=== PATIENT | female | born 1990 | race Caucasian/White ===

== ENCOUNTER 2017-01-15 04:19 | Emergency (ER) | payer MEDICAID | END 2017-01-15 04:55 | disposition home or self-care (01) | LOC: D.ER 04:19 | DX: R51 Headache (principal); R07.9 Chest pain, unspecified; F17.200 Nicotine dependence, unspecified, uncomplicated ==

== ENCOUNTER 2017-04-11 19:02 | Emergency (ER) | payer BC ==
[2017-04-11 20:33] LABS: BASOPHILS 0.8 % (0-2); EOSINOPHILS 4.3 % (0-7); HEMATOCRIT 41.9 % (36.0-48.0); HEMOGLOBIN 14.4 g/dL (12-16); IMMATURE GRANULOCYTES 0.3 % (0-5); LYMPHOCYTES 33.4 % (15-50); MCH 31.3 pg (26.0-34.0); MCHC 34.4 g/dL (31.0-37.0); MCV 91.1 fL (80.0-100.0); MEAN PLATELET VOLUME 9.5 fL (7.4-10.4); MONOCYTES 5.3 % (2-11); NEUTROPHILS 55.9 % (40-80); PLATELET COUNT 216 10x3/uL (130-400); RDW 12.3 % (11.5-14.5); WBC 11.7 10x3/uL (4.8-10.8)
[2017-04-11 20:46] LABS: ALBUMIN 3.9 g/dL (3.4-5.0); ALKALINE PHOSPHATASE 85 U/L (46-116); ALT (SGPT) 61 U/L (10-68); BILIRUBIN - TOTAL 0.19 mg/dL (0.2-1.3); CALC OSMOLALITY 281 mosm/kg (275-300); CARBON DIOXIDE 22.8 mmol/L (21.0-32.0); CHLORIDE - SERUM 107 mmol/L (98-107); CREATININE - SERUM 0.9 mg/dL (0.6-1.3); GLUCOSE 117 mg/dL (74-106); POTASSIUM - SERUM 3.9 mmol/L (3.5-5.1); SODIUM 140 mmol/L (136-145); UREA NITROGEN 17 mg/dL (7-18); eGFR NON AFRICAN AMERICAN 81 mL/min (90-120)
[2017-04-11 21:03] LABS: PROTEIN - SERUM 8.1 g/dL (6.4-8.2)
== END 2017-04-12 01:30 | disposition home or self-care (01) ==
LOC: D.ER 19:02
PROVIDERS: Emergency Medicine
DX: R51 Headache (principal)

== ENCOUNTER 2018-04-28 21:38 | Emergency (ER) | payer MEDICAID ==
[~2018-04-28] VITALS: Ht 180.3 cm; Wt 120.8 kg
[2018-04-28 21:57] VITALS: Ht 180.3 cm; Wt 120.8 kg
[2018-04-28] MEDS ORDERED: YASMIN 28 TABLE1 TAB PO (22:00)
[2018-04-28] MEDS ORDERED: ZANAFLEX4 MG PO (22:01)
[2018-04-28] MEDS ORDERED: ULTRAM50 MG PO (22:01)
[2018-04-28] MEDS ORDERED: GLUCOPHAGE500 MG PO (22:02)
[2018-04-28] MEDS ORDERED: PRISTIQ50 MG PO (22:02)
[2018-04-28] MEDS ORDERED: MINIPRESS2 MG PO (22:02)
[2018-04-28 22:50] LABS: BASOPHILS 0.3 % (0-2); EOSINOPHILS 1.5 % (0-7); HEMATOCRIT 38.8 % (36.0-48.0); HEMOGLOBIN 13.3 g/dL (12-16); IMMATURE GRANULOCYTES 0.3 % (0-5); LYMPHOCYTES 24.7 % (15-50); MCH 31.1 pg (26.0-34.0); MCHC 34.3 g/dL (31.0-37.0); MCV 90.9 fL (80.0-100.0); MEAN PLATELET VOLUME 9.5 fL (7.4-10.4); MONOCYTES 6.6 % (2-11); NEUTROPHILS 66.6 % (40-80); PLATELET COUNT 194 10x3/uL (130-400); RBC 4.27 10x6/uL (4.00-5.40); RDW 12.6 % (11.5-14.5); WBC 17.9 10x3/uL (4.8-10.8)
[2018-04-28 22:56] LABS: HCG SERUM NEGATIVE (NEGATIVE)
[2018-04-28 23:23] LABS: APPEARANCE CLOUDY (CLEAR); BILIRUBIN NEGATIVE (NEGATIVE); COLOR YELLOW (YELLOW); GLUCOSE NEGATIVE (NEGATIVE); KETONE NEGATIVE (NEGATIVE); NITRITE NEGATIVE (NEGATIVE); PROTEIN NEGATIVE (NEGATIVE); SPECIFIC GRAVITY 1.025 (1.005-1.020); UROBILINOGEN NORMAL (NORMAL)
[2018-04-28 23:24] LABS: BACTERIA MODERATE /hpf (NONE SEEN); EPITHELIAL CELLS 0-5 /hpf (0-5); MUCUS <1+ /lpf (NONE SEEN); RED CELLS - URINE 0-5 /hpf (0-5); WHITE CELLS - URINE 0-5 /hpf (0-5)
[2018-04-28 23:25] LABS: AMORPHOUS SEDIMENT >1+ /lpf (NONE SEEN); CALCIUM OXALATE CRYSTALS 0-5 /hpf (NONE SEEN)
[2018-04-28 23:28] LABS: ALBUMIN 3.5 g/dL (3.4-5.0); ALKALINE PHOSPHATASE 89 U/L (46-116); ALT (SGPT) 25 U/L (10-68); CALC OSMOLALITY 280 mosm/kg (275-300); CALCIUM 8.4 mg/dL (8.5-10.1); CARBON DIOXIDE 25.5 mmol/L (21.0-32.0); CHLORIDE - SERUM 106 mmol/L (98-107); GLUCOSE 101 mg/dL (74-106); POTASSIUM - SERUM 3.3 mmol/L (3.5-5.1); PROTEIN - SERUM 7.4 g/dL (6.4-8.2); SODIUM 141 mmol/L (136-145); UREA NITROGEN 12 mg/dL (7-18); eGFR NON AFRICAN AMERICAN 71 mL/min (90-120)
[2018-04-28 23:44] LABS: CKMB 0.6 U/L (0.0-3.6); CREATINE KINASE 89 UL (21-215); TROPONIN-I < 0.017 ng/mL (0.000-0.060)
[2018-04-29] MEDS ORDERED: ANAPROX DS550 MG PO (02:02)
[2018-04-29] MEDS ORDERED: HYDROCODON-ACE1 EAC7 PO (02:02)
[2018-04-29 02:10] VITALS: BP 113/77
== END 2018-04-29 02:08 | disposition home or self-care (01) ==
LOC: D.ER 21:38
PROVIDERS: Emergency Medicine
DX: R07.89 Other chest pain (principal); R55 Syncope and collapse; R53.1 Weakness; M54.2 Cervicalgia; G47.419 Narcolepsy without cataplexy; F17.200 Nicotine dependence, unspecified, uncomplicated

== ENCOUNTER 2018-08-31 00:47 | Emergency (ER) | payer MEDICAID ==
[~2018-08-31] VITALS: Ht 180.3 cm; Wt 113.6 kg
[~2018-08-31 00:47] MED LIST: ANAPROX DS550 MG PO; GLUCOPHAGE500 MG PO; HYDROCODON-ACE1 EAC7 PO; MINIPRESS2 MG PO; PRISTIQ50 MG PO; ULTRAM50 MG PO; YASMIN 28 TABLE1 TAB PO; ZANAFLEX4 MG PO
[2018-08-31 00:53] VITALS: Ht 180.3 cm; Wt 113.6 kg
[2018-08-31] MEDS ORDERED: STERAPRED DS 1210 MG PO (01:12)
[2018-08-31 01:26] VITALS: BP 145/89
== END 2018-08-31 01:28 | disposition home or self-care (01) ==
LOC: D.ER 00:47
DX: M54.5 Low back pain (principal); M48.061 Spinal stenosis, lumbar region without neurogenic claudication; G47.419 Narcolepsy without cataplexy; F17.200 Nicotine dependence, unspecified, uncomplicated

== ENCOUNTER 2020-04-20 19:26 | Emergency (ER) | payer MEDICAID ==
[~2020-04-20] VITALS: Ht 180.3 cm; Wt 120.5 kg
[~2020-04-20 19:26] MED LIST changes: +STERAPRED DS 1210 MG PO
[2020-04-20 19:58] VITALS: Ht 180.3 cm; Wt 120.5 kg
[2020-04-20] MEDS ORDERED: ABILIFY2 MG PO (20:02)
[2020-04-20] MEDS ORDERED: LEXAPRO20 MG PO (20:02)
[2020-04-20] MEDS ORDERED: BUSPAR10 MG PO (20:02)
[2020-04-20] MEDS ORDERED: EPIPEN 2-P0.3 MG/0.3 IM (20:02)
[2020-04-20] MEDS ORDERED: SINGULAIR10 MG PO (20:03)
[2020-04-20] MEDS ORDERED: ZOFRAN ODT4 MG/UDTAB PO (20:03)
[2020-04-20] MEDS ORDERED: PEPCID AC20 MG PO (20:03)
[2020-04-20] MEDS ORDERED: COLESTID1 GM PO (20:03)
[2020-04-20] MEDS ORDERED: LASIX20 MG PO (20:04)
[2020-04-20 20:33] LABS: BASOPHILS 0.4 % (0-2); EOSINOPHILS 1.8 % (0-7); HEMATOCRIT 41.6 % (36.0-48.0); IMMATURE GRANULOCYTES 0.2 % (0-5); LYMPHOCYTES 31.2 % (15-50); MCH 30.2 pg (26.0-34.0); MCHC 33.7 g/dL (31.0-37.0); MCV 89.7 fL (80.0-100.0); MEAN PLATELET VOLUME 10.2 fL (7.4-10.4); MONOCYTES 5.8 % (2-11); NEUTROPHILS 60.6 % (40-80); RBC 4.64 10x6/uL (4.00-5.40); RDW 13.6 % (11.5-14.5); WBC 10.4 10x3/uL (4.8-10.8)
[2020-04-20 20:38] LABS: PLATELET COUNT 265 10x3/uL (130-400)
[2020-04-20 20:43] LABS: APTT 27.3 SECONDS (22.8-39.4); INR 0.98 (0.85-1.17); PROTIME 12.9 SECONDS (11.6-15.0)
[2020-04-20 20:45] LABS: CALC OSMOLALITY 267 mosm/kg (275-300); CALCIUM 8.9 mg/dL (8.5-10.1); CARBON DIOXIDE 24.3 mmol/L (21.0-32.0); CHLORIDE - SERUM 101 mmol/L (98-107); CREATININE - SERUM 0.9 mg/dL (0.6-1.3); GLUCOSE 85 mg/dL (74-106); POTASSIUM - SERUM 5.4 mmol/L (3.5-5.1); SODIUM 135 mmol/L (136-145); UREA NITROGEN 10 mg/dL (7-18); eGFR NON AFRICAN AMERICAN 79 mL/min (90-120)
[2020-04-20 21:02] LABS: ALBUMIN 3.5 g/dL (3.4-5.0); ALKALINE PHOSPHATASE 105 U/L (30-120); ALT (SGPT) 29 U/L (10-68); BILIRUBIN - TOTAL 0.59 mg/dL (0.2-1.3); CKMB 0.3 U/L (0.0-3.6); CREATINE KINASE 180 UL (21-215); PRO BNP 39 pg/mL (0-125); PROTEIN - SERUM 8.2 g/dL (6.4-8.2)
[2020-04-20 21:15] LABS: TROPONIN-I < 0.017 ng/mL (0.000-0.060)
[2020-04-20 21:57] VITALS: BP 123/87
== END 2020-04-20 21:57 | disposition home or self-care (01) ==
LOC: D.ER 19:26
PROVIDERS: Family Medicine
DX: R06.00 Dyspnea, unspecified (principal); R50.9 Fever, unspecified

== ENCOUNTER 2021-04-26 17:35 | Emergency (ER) | payer BC ==
[~2021-04-26] VITALS: Ht 174 cm; Wt 111.4 kg
[~2021-04-26 17:35] MED LIST changes: +ABILIFY2 MG PO; +BUSPAR10 MG PO; +COLESTID1 GM PO; +EPIPEN 2-P0.3 MG/0.3 IM; +LASIX20 MG PO; +LEXAPRO20 MG PO; +PEPCID AC20 MG PO; +SINGULAIR10 MG PO; +ZOFRAN ODT4 MG/UDTAB PO
[2021-04-26 17:57] VITALS: BP 127/91; Ht 174 cm; Wt 111.4 kg
[2021-04-26 18:31] LABS: BASOPHILS 1.1 % (0-2); EOSINOPHILS 1.3 % (0-7); HEMATOCRIT 43.3 % (36.0-48.0); HEMOGLOBIN 14.6 g/dL (12-16); LYMPHOCYTES 29.5 % (15-50); MCH 30.5 pg (26.0-34.0); MCHC 33.8 g/dL (31.0-37.0); MCV 90.1 fL (80.0-100.0); MEAN PLATELET VOLUME 7.3 fL (7.4-10.4); MONOCYTES 5.6 % (2-11); NEUTROPHILS 62.5 % (40-80); PLATELET COUNT 256 10x3/uL (130-400); WBC 10.8 10x3/uL (4.8-10.8)
[2021-04-26 18:34] LABS: NITRITE NEGATIVE (NEGATIVE)
[2021-04-26 18:35] LABS: HCG URINE NEGATIVE (NEGATIVE)
[2021-04-26 18:35] LABS: BILIRUBIN NEGATIVE (NEGATIVE); KETONE NEGATIVE (NEGATIVE); UROBILINOGEN NORMAL mg/dL (< 2)
[2021-04-26 18:36] LABS: CALC OSMOLALITY 274 mosm/kg (275-300); CALCIUM 9.4 mg/dL (8.5-10.1); CARBON DIOXIDE 27.3 mmol/L (21.0-32.0); CHLORIDE - SERUM 104 mmol/L (98-107); CREATININE - SERUM 0.8 mg/dL (0.6-1.3); GLUCOSE 94 mg/dL (74-106); POTASSIUM - SERUM 3.7 mmol/L (3.5-5.1); SODIUM 138 mmol/L (136-145); UREA NITROGEN 11 mg/dL (7-18); eGFR NON AFRICAN AMERICAN 90 mL/min (90-120)
[2021-04-26 18:41] LABS: UDS - AMPHET NEGATIVE QUAL (NEGATIVE); UDS - BARB NEGATIVE QUAL (NEGATIVE); UDS - BENZO NEGATIVE QUAL (NEGATIVE); UDS - COCAINE NEGATIVE QUAL (NEGATIVE); UDS - OPIATE POSITIVE QUAL (NEGATIVE); UDS - PCP NEGATIVE QUAL (NEGATIVE); UDS - THC POSITIVE QUAL (NEGATIVE)
[2021-04-26 18:41] LABS: ALKALINE PHOSPHATASE 89 U/L (30-120); ALT (SGPT) 25 U/L (10-68); MAGNESIUM - SERUM 2.2 mg/dL (1.8-2.4); PROTEIN - SERUM 8.1 g/dL (6.4-8.2)
== END 2021-04-26 21:22 | disposition home or self-care (01) ==
LOC: D.ER 17:35
PROVIDERS: Family Medicine
DX: G47.419 Narcolepsy without cataplexy (principal); R41.0 Disorientation, unspecified